=== PATIENT | male | born 1985 | race Caucasian/White ===

== ENCOUNTER 2022-10-03 18:58 | Outpatient (REF) | payer OTHER, SELFPAY ==
--- NOTE | ~2022-10-03 | MR_ITS ---
EXAMINATION: MR KNEE WITHOUT CONTRAST, RIGHT CLINICAL INFORMATION: Fall while skiing. Knee pain. COMPARISON: None TECHNIQUE: MRI of the knee without contrast was performed using routine sequences on a high-field scanner. FINDINGS: MENISCI: Medial Meniscus: Intact Lateral Meniscus: Intact LIGAMENTS: Cruciate: Intact Collateral: Edema signal around the MCL is most consistent with a grade 1 sprain. Small amount of fluid is present in the MCL bursa. LCL complex is normal. Posterolateral corner structures are intact. EXTENSOR MECHANISM: Intact. ARTICULAR CARTILAGE/BONE: Patellofemoral Compartment: Small patellar osteophytes. Articular cartilage appears well-preserved. Medial Compartment: A small focus of nonuniform chondral thinning is present at the lateral margin of the posterior weightbearing surface of the medial femoral condyle. Articular cartilage is otherwise normal. Lateral Compartment: Small foci of chondral thinning and fissuring are present at the far medial aspect of the lateral tibial plateau. There is an osseous contusion at the posterior margin of the lateral tibial plateau. No fracture or malalignment. 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 JOINT FLUID AND BURSAE: Small joint effusion. MR/MR knee RT wo con IMPRESSION: Grade 1 MCL sprain. Osseous contusion at the posterior margin of the lateral tibial plateau. Intact menisci. Small joint effusion.
== END 2022-10-03 18:59 | disposition home or self-care (01) ==
LOC: HO.MRI 18:58
PROVIDERS: PCP Internal Medicine; Visit Provider Internal Medicine
DX: M25.561 Pain in right knee (principal)
CPT/HCPCS: 73721